=== PATIENT | male | born 1965 | race Caucasian/White ===

== ENCOUNTER → 2024-09-08 | Outpatient (CLI) | payer SELFPAY ==
--- NOTE | 2024-09-08 16:17 | US_ITS ---
INDICATION: Rt enlarged testicle EXAMINATION: Ultrasound US Scrotum (Contents) TECHNIQUE: Realtime ultrasound of the testicles was performed with grayscale, Color Doppler and spectral Doppler analysis. COMPARISON: No relevant prior comparison study available FINDINGS: RIGHT: TESTIS: 5 x 4.8 x 2.2 cm. Normal in size and echotexture, without focal lesion. COLOR DOPPLER: Normal arterial flow present in the testicle with monophasic waveforms. EPIDIDYMIS: Not visualized. HYDROCELE: Large hydrocele. VARICOCELE: None. LEFT: TESTIS: 4.8 x 3.3 x 2 cm. Normal in size and echotexture, without focal lesion. COLOR DOPPLER: Normal arterial flow present in the testicle with monophasic waveforms. EPIDIDYMIS: The left mid abdomen head measures about 1 cm with mild thickening of the anterior wall. [Normal color Doppler flow pattern in the epididymis. HYDROCELE: None. VARICOCELE: None. US/Testicular with Arterial Flow IMPRESSION: Large right hydrocele. Electronically Signed: Romain Mao MD at 14:20 EDT ,
--- OUTSIDE RECORDS SUMMARY | 2024-09-08 17:17 | XMS RPT_ITS | CCD ---
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, right] Chronic Other injuries and conditions due to external causes (1 source) Injury of head; Translations: [Blunt head trauma, initial encounter] Episodic Other skin disorders (1 source) Swelling of structure of eye; Translations: [Optic nerve edema] Episodic Results Test Name Value Interpretation Reference Range Facil ity CT HEAD OR BRAIN WITH AND WI THOUT CONTRASTon 10-10-2020 CT HEAD OR BRAIN WITH AND WITHOUT CONTRAST EXAMINATION: CT HEAD OR BRAIN WITH AND WITHOUT CONTRAST HISTORY: Gliosis of optic nerve, 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 CT scan performed through the brain with and without IV contrast and reconstructed in the axial, coronal and sagittal planes. FINDINGS: No abnormal parenchymal enhancement. No obvious enhancement abnormality of the optic nerves. There is no evidence of mass, mass effect or hemorrhage. The ventricles, sulci and basilar cisterns are normal for the patient's age. The yu-white interface is intact. The cerebral hemispheres, brain stem and cerebellar hemispheres are otherwise normal. The osseous structures are normal. Contrast examination reveals no evidence of abnormal enhancement. IMPRESSION: 1. Normal pre- and postcontrast examination. [employer] Workstation ID: [id number] Dictated by: Anish BARNES on SatOct 10, 2020 10:36:52 AM EST Transcribed by: LUIS MATIAS on SatOct 10, 2020 11:04:00 AM EST Finalized by: Anish BARNES on SatOct 10, 2020 11:51:13 AM EST Normal [facility] Comment on above: Order Comment: ELIANE DEWEY WILL FAX ORDER Injury/Trauma or Illness?:Illness/Other How long have you had these symptoms (acute/chronic)?:Acute Reason for exam?:Solid nodule of lung 6 mm to 8 mm in diameter Type of Exam?:Initial Additional signs and symptoms?:head trauma CT Head Or Brain With And Wi thout Contraston 10-10-2020 1. Normal pre- and postcontrast examination. 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 CT scan performed through the brain with and without IV contrast and reconstructed in the axial, coronal and sagittal planes. FINDINGS: No abnormal parenchymal enhancement. No obvious enhancement abnormality of the optic nerves. There is no evidence of mass, mass effect or hemorrhage. The ventricles, sulci and basilar cisterns are normal for the patient's age. The yu-white interface is intact. The cerebral hemispheres, brain stem and cerebellar hemispheres are otherwise normal. The osseous structures are normal. Contrast examination reveals no evidence of abnormal enhancement. 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 CT scan performed through the brain with and without IV contrast and reconstructed in the axial, coronal and sagittal planes. FINDINGS: No abnormal parenchymal enhancement. No obvious enhancement abnormality of the optic nerves. There is no evidence of mass, mass effect or hemorrhage. The ventricles, sulci and basilar cisterns are normal for the patient's age. The yu-white interface is intact. The cerebral hemispheres, brain stem and cerebellar hemispheres are otherwise normal. The osseous structures are normal. Contrast examination reveals no evidence of abnormal enhancement. IMPRESSION: 1. Normal pre- and postcontrast examination. [employer] Workstation ID: [id number] [facility] Encounters Encounter Date Encounter Type Care Provider Facility Start: 01-25-2021 End: 01-25-2021 Orders Only Skye Goldsmith Work Phone: [facility] Start: 10-10-2020 End: 10-11-2020 [facility] Start: 10-10-2020 End: 10-10-2020 Subsequent hospital visit by physician Gini Walls Work Phone: [facility] CT Scan Comment on above: Gliosis of optic ner ve, right; Optic nerve edema; Blunt head trauma, initial encounter Procedures Date Procedure Procedure Detail Performing Clinician Start: 10-10-2020 Ct head/brain w/o & w/contrast material Gini Walls Work Phone: Plan of Treatment Date Care Activity Detail Author Start: 07-19-2020 Influenza vaccination given Se quential Influenza Vaccine (#1) [facility] Start: 2014 Administration of he rpes zoster vaccine Zoster Vaccines (1 of 2) [facility] Start: 2014 Screening for malign ant neoplasm of colon [facility] Start: 1982 Hepatitis C antibody , confirmatory test Hepatitis C Screening [facility] Start: 1980 COVID-19 Vaccine (1 of 2) COVID-19 V accine (1 of 2) [facility] Start: 1979 HIV screening HIV Screening [facility] Start: 1976 Adolescent depressio n screening assessment Depression Screening (PHQ9) [facility] Start: 1967 History and physical examination, annual for health maintenance Wellness Visit [facility] Start: 1964 Prostate specific an tigen measurement PSA Level [facility] Start: 1964 Tetanus vaccination Tetanus: Every 1 0yrs [facility] Social History Date Type Detail Facility Tobacco smoking status NHIS Unknown if ev er smoked [facility] Sex Assigned At Not on file [facility] Exposure to SARS-CoV-2 (event) Not sure [facility] Summary Purpose Family History No Family History Records Found Advance Directives Documents on File Type Date Recorded Patient Location Manager Expl anation Advance Directives and Livin g Will 10/10/2020 8:23 AM Documents on File Type Date Recorded Patient Location Manager Expl anation Advance Directives and Livin g Will 10/10/2020 8:23 AM Reason for Referral Status Reason Specialty Diagnoses / Procedures Referred By Contact Referred To Contact Pending Review Radiology Diagnoses Gliosis of optic nerve, right Optic nerve edema Blunt head trauma, initial encounter Procedures CT Head Or Brain With And Without Contrast Gini Walls MD [address] [place] [address] Assessments Diagnosis Gliosis of optic nerve, right Optic nerve edema Blunt head trauma, initial encounter Additional Source Comments (unrecognized sect ion and content) No Status Records Found INFORMATION SOURCE (unrecogn ized section and content) DATE CREATED AUTHOR 10/11/2020 [facility] Reason for Visit (unrecogniz ed section and content) Status Reason Specialty Diagnoses / Procedures Referred By Contact Referred To Contact Pending Review Radiology Diagnoses Gliosis of optic nerve, right Optic nerve edema Blunt head trauma, initial encounter Procedures CT Head Or Brain With And Without Contrast Gini Walls MD [address] [place] [address] FOR RECORDS PERTAINING TO PATIENTS WHO ARE OR HAVE BEEN ENROLLED IN A CHEMICAL DEPENDENCY/SUBSTANCEABUSE PROGRAM, SOME INFORMATION MAY BE OMITTED. This clinical summary was aggregated from multiple sources. Caution should be exercised in using it in the provision of clinical care. This summary normalizes information from multiple sources, and as a consequence, information in this document may materially change the coding, format and clinical context of patient data. In addition, data may be omitted in some cases. CLINICAL DECISIONS SHOULD BE BASED ON THE PRIMARY CLINICAL RECORDS. [facility]. provides no warranty or guarantee of the accuracy or completeness of information in this document.
== END | disposition home or self-care (01) ==
LOC: US 16:15
PROVIDERS: PCP Physician Assistant; Referring Provider Physician Assistant; Visit Provider Physician Assistant
DX: N50.89 Other specified disorders of the male genital organs (principal)
CPT/HCPCS: 76870; 93976

== ENCOUNTER → 2024-09-28 | Outpatient (CLI) | payer SELFPAY ==
[2024-09-28 10:40] LABS: Hematocrit 43.5 % (40-54); Hemoglobin 14.5 g/dL (13.0-16.5); Mean Corp Hgb Conc 33.3 g/dL (32-36); Mean Corpuscular Hgb 29.7 pg (27.0-32.0); Mean Corpuscular Volume 89.1 fL (80-94); Mean Platelet Vol. 9.3 fl (6.2-12.0); Platelet Count 258 K/mm3 (150-450); RBC Distribution Width CV 12.1 % (11.6-14.6); RBC Distribution Width SD 39.7 fl (35.1-43.9); Red Blood Count 4.88 M/mm3 (4.6-6.2); White Blood Count 7.2 K/mm3 (4.4-11.0)
[2024-09-28 11:09] LABS: Anion Gap 2 (5-15); BUN 18 mg/dL (7-18); BUN/Creat Ratio 18.8 RATIO (10-20); Calcium,Total 9.2 mg/dL (8.5-10.1); Chloride 105 mmol/L (98-107); Creatinine, Serum 0.96 mg/dL (0.70-1.30); EST Glomerular Filtration Rate 85 mL/min (>60); Est Glom Filt Rate - Afr Amer 103 mL/min (>60); Glucose 101 mg/dL (74-106); Potassium 4.3 mmol/L (3.5-5.1); Sodium Level 138 mmol/L (136-145)
== END | disposition home or self-care (01) ==
PROVIDERS: PCP Physician Assistant; Referring Provider Urology; Visit Provider Urology
DX: Z01.812 Encounter for preprocedural laboratory examination (principal)
CPT/HCPCS: 36415; 80048; 85027